=== PATIENT | female | born 1970 | race Caucasian/White ===

== ENCOUNTER 2021-09-30 22:48 | Emergency (ER) | payer OTHER, SELFPAY ==
[2021-09-30 22:56] VITALS: BP 124/80; PULSE 103; RESP 16; O2SAT 98; BMI 37.8
--- NOTE | 2021-09-30 23:03 | ED_ITS ---
HPI - Psych General Chief Complaint: Psychiatric Symptoms Stated Complaint: SI Time Seen by Provider: 09/30/21 23:03 Source: patient Mode of arrival: EMS Limitations: no limitations History of Present Illness HPI Narrative: 51-year-old female who presents emergency department for evaluation of suicidal ideation. The patient states that she was in a 20 year relationship with her ex-fiance and he broke up with her approximately a year prior pain she states that since that time she has been upset and angry and she has been trying ?to talk him into taking her back ?. She states that she was texting him today and he was not responding. This made her upset and angry and she then texted him a picture of her sleeping pills (hydroxyzine) with a caption that stated what would happen if you overdose on these medications. Apparently, her ex-fiance then called the police and the police showed up on her door and the patient was then transported to the emergency department by ambulance for evaluation of suicidal ideation. The patient told me that she is currently not suicidal and she has no intention of overdosing but she is very upset, angry, depressed and very anxious. She states she has never tried to kill herself for overdose in the past. She denied being ill in any way recently. She states that she had a Grzegorz Grzegorz vaccination and a booster shot of the Pfizer COVID 19 vaccine. Related Data Allergies Allergy/AdvReac Type Severity Reaction Status Date / Time Penicillins Allergy Rash Verified 09/30/21 23:16 Review of Systems Review of Systems: Yes all other systems are reviewed and are negative [facility] Past Medical History [facility] Narrative: Past medical history: Hyperlipidemia (not treated with medications), depression, anxiety, insomnia. Social history: The patient smokes 1/2 pack of cigarettes per day times 30 years. She denies alcohol use. She denies drug use. Social History Social History Alcohol intake: current Patient Tobacco Use Status: Never used Tobacco Use of substances other than those prescribed or required for medical reasons: No Advance Directives: No Guardian: No Physical Exam Vital Signs: Vital Signs: Last Vital Signs Pulse 103 H 09/30/21 22:56 Resp 16 09/30/21 22:56 BP 124/80 09/30/21 22:56 Pulse Ox 98 09/30/21 22:56 BMI result Body Mass Index 37.8 Const: General: cooperative and no acute distress Orientation/consciousness: oriented to person and oriented to place Limitations: no limitations HENMT: Head: Yes normal to inspection, Yes normocephalic and Yes atraumatic Ears: external ears normal General nose exam: Normal external nose present Face and sinus: Yes normal facial exam Mouth: Normal oral and palatal mucosa present Throat: Yes posterior oropharynx normal Eyes: General: appearance normal, both eyes and all related structures Pupils: Equal, round and reactive pupils present Neck: Neck: Yes normal visual inspection, Yes no lymphadenopathy, Yes trachea midline and Yes supple Chest: Chest palpation & inspection: normal inspection of the chest and normal palpation of entire chest wall Resp: Effort & Inspection: normal respiratory effort and able to speak in complete sentences Auscultation: clear to auscultation bilaterally Cardio: Rate: regular rate Rhythm: regular rhythm Heart sounds: S1 normal heart sound present, S2 normal heart sound present and no murmurs GI: Inspection: Yes normal to inspection Palpation (GI): Soft to palpation, nontender and no guarding Auscultation: normal bowel sounds : General: Yes no CVA tenderness Back/Spine/Pelvis: Back: no CVA tenderness Skin: General skin exam: no rashes or lesions noted Neuro: General: oriented to person and oriented to place Cranial nerves: Yes CN's II-XII intact bilaterally and Yes Equal, round and reactive pupils present Cognition (Neuro): normal cognition Motor exam (neuro): 5/5 motor strength present throughout Extrem: General: Yes normal to inspection Psych: Appearance: grossly normal Speech and movement: Normal speech and movement present Affect: normal affect Attitude: cooperative Thought process: Normal thought process present Thought content: Normal thought content present, suicidality and no homicidality Course Course Course Narrative: 51-year-old female who was brought to emergency department by ambulance after she texted her ex-fiance a picture of her sleeping pills (hydroxyzine) and a caption of what happens when you overdose on these medications. Her ex-fiance then called the police and the police had the patient transported to the emergency department by ambulance for evaluation. The patient states that she does have anxiety and depression and takes a medication for this. She states that she has been under lot of stress since her ex-fiance broke up with her 1 year prior. She currently told me that she is not suicidal and she is not homicidal. Vital signs were normal except for slight tachycardia with a pulse of 103. The patient's physical examination was unremarkable. I did order a urine tox screen and urine test This patient is medically cleared for psychiatric evaluation and I will consult Behavioral Health chief evaluate the patient here in emergency department. 0640: Laboratory evaluation: Tox screen was negative. Urine test was negative. Patient was seen by Behavioral Health. Their plan was to keep the patient in the emergency department until the morning and the patient can be evaluated by the care team and set up with outpatient services and the care team in his sister and getting a ride home as well. At the end of my shift, the patient's care was turned over to my colleague, Dr. Elham Luis. MDM - Psych Lab Data Labs: Lab Results 10/01/21 10/01/21 10/01/21 Range/Units 00:34 00:54 00:54 Urine Test NEGATIVE (NEGATIVE) Urine Opiates Screen Not Detected (Not Detect) Urine Fentanyl Screen Not Detected (Not Detect) Ur Barbiturates Screen Not Detected (Not Detect) Ur Phencyclidine Scrn Not Detected (Not Detect) Ur Amphetamines Screen Not Detected (Not Detect) U Benzodiazepines Scrn Not Detected (Not Detect) Urine Cocaine Screen Not Detected (Not Detect) U Marijuana (THC) Screen Not Detected (Not Detect) COVID-19 ([facility]) Negative (Negative) COVID-19 Clin Com See Note Discharge Plan Discharge Clinical Impression: Depression with suicidal ideation Patient Disposition: Still a Patient Additional Instructions: Please follow the Behavioral Health provider and the Care Team Instructions. Follow-up with your doctor in 2 days. Please return to the emergency department if your symptoms get worse or if you develop any symptoms that are concerning to you.
[2021-10-01 00:58] LABS: COVID-19 Test Negative (Negative)
[2021-10-01 01:02] LABS: Urine Pregnancy NEGATIVE (NEGATIVE)
[2021-10-01 01:03] LABS: UPreg QC Valid YES
[2021-10-01 01:17] LABS: Amphetamine Screen Urine Not Detected (Not Detect); Barbiturates, Urine Not Detected (Not Detect); Benzodiazepines Screen Urine Not Detected (Not Detect); Cannabinoid Screen Urine Not Detected (Not Detect); Cocaine Screen Urine Not Detected (Not Detect); Fentanyl, urine Not Detected (Not Detect); Opiate Screen Urine Not Detected (Not Detect); Phencyclidine Screen Urine Not Detected (Not Detect)
--- NOTE | 2021-10-01 01:50 | PC.NURSE ---
I assumed care of this pt upon her arrival from EMS. Since that time she has been resting in a hallway stretcher with 1:1 at bedside. She has been changed into hospital attire and all belongings secured by security away from the patient. The pt, on arrival, denies SI and HI, although she did tell someone prior to arrival that she wanted to take a bunch of sleeping pills per EMS and PD who were present on pt's arrival. Pt makes eye contact with RN, is calm and cooperative, has a flat affect5. She is taking PO fluids without difficulty. There is no SOB, no chest pain, no complaints. We will continue to monitor.
--- NOTE | 2021-10-01 02:39 | MHC.CARE ---
[facility] unable to send clinician to evaluate pt. This feature writer met with pt for assessment. Plan of care is for re-eval in the morning to determine final disposition due to lack of collateral contacts available at this time.
--- NOTE | 2021-10-01 10:13 | MHC.CARE ---
CARE Team met with patient in [address] [place] as a follow up to last night's evaluation. She was alert and oriented, engaged, continued to deny suicidal ideation, plan or intention; has no history of attempts or gestures. Stated that she wanted her ex to respond to her calls and texts and did not know what else to do, he wants her to move out of his apartment. Patient has limited income from temporary disability as she awaits the final decision, if approved she will have stable income and will be able to move out and find another apartment. Call to patient's ex-boyfriend, Agustin [phone], who called 911 yesterday. He reported this is the first time patient has made such a threat and he believes the reason to be because she was desperate to get his attention. They have a tense relationship at this time because he has moved out with another woman and patient is unable to accept this fact, does not want to move on. Patient does not need an inpatient psychiatric hospitalization at this time. She has a therapist at [facility] and an appointment scheduled with a new prescriber next month. ED provider ERNIE Graham consulted and in agreement with plan to discharge. Provided patient number and information for [facility] and arranged a [facility] home.
== END 2021-10-01 09:46 | disposition home or self-care (01) ==
PROVIDERS: Emergency Provider Emergency Medicine Emergency Medical Services
DX: F32.A Depression, unspecified (principal); R45.851 Suicidal ideations; F41.9 Anxiety disorder, unspecified; F48.9 Nonpsychotic mental disorder, unspecified; R00.0 Tachycardia, unspecified; Z72.89 Other problems related to lifestyle; Z63.0 Problems in relationship with spouse or partner; Z20.822 Contact with and (suspected) exposure to COVID-19; G47.00 Insomnia, unspecified; F17.200 Nicotine dependence, unspecified, uncomplicated; Z79.899 Other long term (current) drug therapy
CPT/HCPCS: 80307; 81025; 87635; 99285